=== PATIENT | female | born 2000 | race African-American/Black ===

== ENCOUNTER 2024-11-27 07:07 | Observation (INO) ==
--- NOTE | 2024-11-27 07:25 | Emergency Department Note ---
Impression & Plan PID (acute pelvic inflammatory disease), Nausea & vomiting ED Provider Note CHIEF COMPLAINT: Abdominal pain, nausea vomiting HISTORY OF PRESENTING ILLNESS: The patient is a pleasant 24-year-old female who arrives to the emergency department for evaluation of abdominal pain, nausea, vomiting, and vaginal discharge. Patient reports symptoms have been for 3 days. Patient also reports brown odorous vaginal discharge. Patient reports she had a malpositioned IUD replaced approximately 3 weeks ago. Patient reports being on her menstrual cycle at that time. She states since then she has had vaginal discharge. She reports no dysuria, no pelvic pain, no fever. No new sexual partner since IUD placement. REVIEW OF SYSTEMS: See HPI for pertinent positives and pertinent negatives. ALLERGIES: See below MEDICATIONS: See below PAST MEDICAL HISTORY: See below PHYSICAL EXAM: VITALS: Vitals are noted on the nurse's note and reviewed by myself. Vital signs stable. GENERAL: 24-year-old female, in no acute distress, nondiaphoretic, well- developed well-nourished. SKIN: The skin was without rashes, erythema, edema, or bruising. HEAD: Normocephalic atraumatic. HEART: Regular rate and rhythm without murmurs gallops or rubs. LUNGS: Clear to auscultation bilaterally without wheezes, rales or rhonchi. No retractions or accessory muscle use. ABDOMEN: Positive bowel sounds x 4. Soft, TTP diffuse lower abdomen. No rebound tenderness or guarding. : Severe pain on examination, with insertion of speculum. No abnormal findings on external examination. Erythema, with brown, discharge present in the vaginal vault. Cervical motion tenderness present. NEURO: Patient was alert and oriented to person place and time. No focal neurological deficits. DIFFERENTIAL DIAGNOSIS: Appendicitis, ovarian cyst, ovarian torsion, ectopic , TOA, PID, infections, diverticulitis, UTI, obstruction, mesenteric ischemia, aortic pathology, inflammatory bowel disease, renal colic, PUD, pancreatitis, biliary pathology, hernia, volvulus, constipation, as well as other pathologies. ED COURSE AND MEDICAL DECISION MAKING: MEDICATIONS GIVEN: 2 g IV Rocephin, 100 mg IV doxycycline, 500 mg IV metronidazole, 1 L NSS bolus, 4 mg IV Zofran. INTERPRETATION OF LABS: I interpreted the labs with full lab results as below in the lab section of this note. Pertinent lab results discussed in the MDM section below. INTERPRETATION OF IMAGING: Imaging studies were interpreted by myself and read by radiology as per the imaging section of this note. MDM SUMMARY: The patient is a pleasant 24-year-old female who arrives to the emergency department for evaluation of the above-stated complaint. Saline lock was established, CBC, CMP, urinalysis, lipase, were obtained. CBC shows no leukocytosis, with a stable hemoglobin and hematocrit. CMP is unremarkable. Urinalysis 3+ blood, trace leukocyte esterase, 11-20 WBCs, 4+ bacteria. Pelvic examination performed with crankshaft straightener at bedside. Concern for pelvic inflammatory disease based on examination findings. Vaginal cultures were obtained. The patient was provided 2 g of IV Rocephin, 100 mg IV doxycycline, and 500 mg IV metronidazole. I spoke with Dr. De Los Santos from [facility], who stated no further orders from her standpoint would be required and the patient can be treated with medical admission. Case management facilitated contact with the [facility] hospitalist group. Dr. Vázquez agreed to evaluate the patient, for admission. Due to the patient's nausea and vomiting, she will be unable to take oral antibiotics. Dr. Vázquez agreed to admit the patient under his care. Please refer to his documentation for further patient workup and treatment. DIAGNOSIS: Pelvic inflammatory disease, nausea/vomiting The chart was completed utilizing [employer] Speech voice recognition software. Grammatical errors, random word insertions, pronoun errors, and incomplete sentences are an occasional consequence of this system due to software limitations, ambient noise, and hardware issues. Any formal questions or concerns about the content, text, or information contained within the body of this dictation should be directly addressed to the provider for clarification. 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 Beliefs That Will Affect Care: None Current Living Situation: Other Current Living Situation Comment: [facility] Other Information That Helps Us Care for You: No Feels Safe at Home: Yes Safety Concerns: Feels Safe At This Time Assistive Devices: None Allergies Allergies Allergy/AdvReac Type Severity Reaction Status Date / Time peanut Allergy Gastrointestinal Verified 11/27/24 09:24 Upset Penicillins Allergy Hives Verified 11/27/24 09:24 Home Meds Home Medications Medication Instructions Recorded Confirmed lurasidone 40 mg tablet 40 mg PO QDD 09/09/24 11/27/24 cetirizine 5 mg-pseudoephedrine ER 1 tab PO Q12H PRN 11/27/24 11/27/24 120 mg tablet,extended Allergy/Congestion release,12hr (Zyrtec-D) fluticasone propionate 50 1 spray intranasal DAILY 11/27/24 11/27/24 mcg/actuation nasal spray,suspension ondansetron 4 mg disintegrating 4 mg PO Q8H PRN Nausea And Vomiting 11/27/24 11/27/24 tablet Results & Data (ED) Vital Signs Vital Signs - 24 hr 11/27/24 07:12 11/27/24 10:17 11/27/24 12:59 Temperature 36.4 C L Temperature Source Temporal Artery Scan Pulse Rate 79 Pulse Rate [Right Finger] 82 67 Pulse Rhythm [Right Finger] Regular Respiratory Rate 18 17 17 Respiratory Depth Normal Blood Pressure 135/102 H Blood Pressure [Left Arm] 144/85 H 136/89 Blood Pressure Mean 113 Blood Pressure Mean [Left Arm] 104 104 Blood Pressure Position [Left Arm] Semi-fowlers Pulse Oximetry 97 100 100 Oxygen Delivery Method Room Air Room Air Sepsis New/Unexplained Change in Mental Status No Sepsis Action Taken by Nursing No Action Required Home Medications Current Medication List: was personally reviewed by me Laboratory Data Attestation: I reviewed the patient's lab results. 11/27/24 07:50 11/27/24 07:50 Lab Results 11/27/24 11/27/24 11/27/24 Range/Units 07:50 08:25 09:35 WBC 7.38 (4.8-10.8) K/ul RBC 4.61 (4.20-5.40) M/uL Hgb 13.1 (12.0-16.0) g/dl Hct 39.5 (37.0-47.0) % MCV 85.7 (80.0-100.0) fL MCH 28.4 (25.0-34.0) pg MCHC 33.2 (32.0-36.0) g/dL RDW Std Deviation 45.4 (36.4-46.3) fL RDW Coeff of Jose 14.6 H (11.5-14.5) % Plt Count 359 (130-400) K/uL MPV 9.5 (9.4-12.4) fL Immature Gran % (Auto) 0.3 % Neut % (Auto) 54.2 % Lymph % (Auto) 36.9 % [place] % (Auto) 7.5 % Eos % (Auto) 0.3 % Baso % (Auto) 0.8 % Neut # (Auto) 4.01 (1.40-6.50) K/uL Lymph # (Auto) 2.72 (1.20-3.40) K/uL [place] # (Auto) 0.55 (0.11-0.59) K/uL Eos # (Auto) 0.02 (0.00-0.50) K/uL Baso # (Auto) 0.06 (0.00-0.20) K/uL Immature Gran # (Auto) 0.02 (0.01-0.20) K/uL Sodium 139 (136-145) mmol/L Potassium 3.9 (3.5-5.1) mmol/L Chloride 106 (98-107) mmol/L Carbon Dioxide 27 (21-32) mmol/L Anion Gap 6 (3-11) BUN 8 (6-23) mg/dl Creatinine 0.65 (0.6-1.2) mg/dl Est Cr Clr Drug Dosing 194.2 ml/min eGFR 127.59 BUN/Creatinine Ratio 12.3 (10-20) Glucose 95 (70-99(Fasting)) mg/dl Calcium 9.5 (8.6-10.3) mg/dl Total Bilirubin 0.7 (0.2-1.0) mg/dl AST 11 L (13-39) U/L ALT 4 L (7-52) U/L Alkaline Phosphatase 59 (34-104) U/L Total Protein 7.4 (6.0-8.3) gm/dl Albumin 4.3 (3.4-5.0) gm/dl Globulin 3.1 (2.5-4.0) gm/dl Albumin/Globulin Ratio 1.4 (0.9-2) Lipase 10 L (11-82) U/L Urine Color Dark Yellow Urine Appearance Cloudy A (Clear) Urine pH 6.0 (4.5-7.5) Ur Specific [place] 1.034 H (1.000-1.030) Urine Protein Trace H (Negative) Urine Glucose (UA) Negative (Negative) Urine Ketones 1+ H (Negative) Urine Blood 3+ H (Negative) Urine Nitrite Negative (Negative) Urine Bilirubin Negative (Negative) Urine Urobilinogen Negative (Negative) Ur Leukocyte Esterase Trace H (Negative) Urine WBC (Auto) 11-20 H (0-5) /hpf Urine RBC (Auto) 11-20 H (0-2) /hpf U Hyaline Cast (Auto) 3-5 H (0-2) /lpf U Epithel Cells (Auto) 0-2 (0-2) /hpf Urine Bacteria (Auto) 4+ H (None Seen) Urine Mucus Present A (None Prsent) Urine Test Negative (Negative) C.trachomatis RNA Not Detected (NotDetected) N.gonorrhoeae RNA Not Detected (NotDetected) T.vaginalis (Amp Det) Not Detected (NotDetected) Administered Medications Lactated Ringer's (Lr) 1,000 mls @ 80 mls/hr IV .[id number] [facility] Stop: 11/28/24 01:44 Last Admin: 11/27/24 15:50 Dose: 80 mls/hr Documented By: JHON Ondansetron HCl (Ondansetron Inj 2 Mg/Ml 2 Ml Vial) 4 mg IV Q6H PRN PRN Reason: Nausea And Vomiting Stop: 12/27/24 15:31 Last Admin: 11/27/24 15:53 Dose: 4 mg Documented By: JILLIANO Discontinued Medications Sodium Chloride (Nss) 1,000 mls @ 999 mls/hr IV .[id number] ONE Stop: 11/27/24 08:33 Last Infusion: 11/27/24 09:19 Dose: Infused Documented By: Admin: 11/27/24 08:15 Dose: 999 mls/hr Documented By: GASTON Acetaminophen (Ofirmev) 1,000 mg in 100 mls @ 400 mls/hr IV NOW STA Stop: 11/27/24 09:51 Last Infusion: 11/27/24 10:26 Dose: Infused Documented By: Admin: 11/27/24 09:42 Dose: 400 mls/hr Documented By: GASTON Ceftriaxone Sodium (Rocephin) 2,000 mg in 50 mls @ 100 mls/hr IV NOW STA Stop: 11/27/24 10:09 Last Infusion: 11/27/24 12:52 Dose: Infused Documented By: Admin: 11/27/24 10:59 Dose: 100 mls/hr Documented By: GASTON Doxycycline Hyclate 100 mg/ (Dextrose) 100 mls @ 50 mls/hr IV NOW STA Stop: 11/27/24 13:46 Last Infusion: 11/27/24 16:17 Dose: Infused Documented By: Admin: 11/27/24 12:52 Dose: 50 mls/hr Documented By: GASTON Metronidazole (Flagyl) 500 mg in 100 mls @ 100 mls/hr IV NOW STA; Protocol Stop: 11/27/24 12:46 Last Infusion: 11/27/24 14:54 Dose: Infused Documented By: Admin: 11/27/24 12:26 Dose: 100 mls/hr Documented By: GASTON Ondansetron HCl (Ondansetron Inj 2 Mg/Ml 2 Ml Vial) 4 mg IV NOW STA Stop: 11/27/24 07:34 Last Admin: 11/27/24 08:14 Dose: 4 mg Documented By: GASTON Imaging Data Attestation: I personally reviewed and interpreted this imaging study as follows: Radiologist's Impression: Pelvis Ultrasound 11/27/24 09:37 US pelvic complete HISTORY: 24 years-old Female pain, PID? Acute generalized pelvic pain COMPARISON: CT abdomen and pelvis and pelvic ultrasound studies 09/09/2024 TECHNIQUE: Multiple real-time sonographic images of the deep pelvic structures were obtained transabdominally assessing grayscale appearance, color and spectral flow FINDINGS: Anteflexed uterus measures 8.1 x 4.4 x 3.8 cm and is unremarkable. Endometrium is 4 mm in thickness. No myometrial mass lesion. Fundal positioning of the intrauterine device. Right ovary measures 2.3 x 2.2 x 1.4 cm's. Left ovary measures 3.1 x 2.7 x 2.1 cm. Arterial inflow venous outflow documented bilaterally. No adnexal mass lesions. Patient declined the transvaginal component of the study. IMPRESSION: Unremarkable pelvic ultrasound. ACT 112: Negative or not required by law. The above report was generated using voice recognition software. It may contain grammatical, syntax or spelling errors. Electronically signed by: Spike Minor M.D. 11/27/2024 11:09 AM Abdomen/Pelvis CT 11/27/24 12:55 CT OF THE ABDOMEN AND PELVIS WITHOUT CONTRAST CLINICAL HISTORY: Abdominal pain. Suspect pelvic inflammatory disease. COMPARISON STUDY: CT of the abdomen and pelvis September 09, 2024. Pelvic ultrasound performed earlier today. TECHNIQUE: Axial images of the abdomen and pelvis were obtained without IV contrast. Images were reviewed in the axial, sagittal, and coronal planes. Automated exposure control was utilized for the study. A dose lowering technique was utilized adhering to the principles of ALARA. FINDINGS: Visualized lung bases are unremarkable. No pneumatosis, free air or portal venous gas is present. There are no renal, ureteral or bladder calculi. Pelvic calcifications represent phleboliths. Evaluation of the remainder of the abdomen and pelvis is suboptimal on this unenhanced examination. Liver, spleen, adrenal glands and pancreas are unremarkable. There is no biliary or pancreatic ductal dilatation. Postoperative findings within the stomach are again noted. There is no evidence for a bowel obstruction. The appendix is normal. Intrauterine device is in place. Ovaries are not enlarged. No pelvic fluid collection is identified although sensitivity is diminished on unenhanced exam. IMPRESSION: 1. No acute process within the abdomen or pelvis on unenhanced exam. 2. No urinary calculi or hydronephrosis. 3. No bowel obstruction. Normal appendix. 4. Intrauterine device in place. ACT 112: Negative or not required by law. Electronically signed by: Remi Baker M.D. 11/27/2024 2:35 PM Discharge Plan Visit Data Chief Complaint: GI Assessment Stated Complaint: N/V, STOMACH PAIN ED Provider: Clem Flores ED Midlevel Provider: Chantelle Burkett Discharge Problem: PID (acute pelvic inflammatory disease), Nausea & vomiting Patient Disposition: Admitted As Inpatient Discharge Instructions Interventions: ED Discharge Assessment Last Done: 11/27/24 15:03
[2024-11-27 08:13] LABS: Basophils # (auto) 0.06 K/uL (0.00-0.20); Basophils % (auto) 0.8 %; Eosinophils # (auto) 0.02 K/uL (0.00-0.50); Eosinophils % (auto) 0.3 %; Hematocrit (blood only) 39.5 % (37.0-47.0); Hemoglobin 13.1 g/dl (12.0-16.0); Immature Granulocytes # (auto) 0.02 K/uL (0.01-0.20); Immature Granulocytes % (auto) 0.3 %; Lymphocytes # (auto) 2.72 K/uL (1.20-3.40); Lymphocytes % (auto) 36.9 %; Mean Corpuscular Hemoglobin 28.4 pg (25.0-34.0); Mean Corpuscular Hgb Conc 33.2 g/dL (32.0-36.0); Mean Corpuscular Volume 85.7 fL (80.0-100.0); Mean Platelet Volume 9.5 fL (9.4-12.4); Monocytes # (auto) 0.55 K/uL (0.11-0.59); Monocytes % (auto) 7.5 %; Neutrophils # (auto) 4.01 K/uL (1.40-6.50); Neutrophils % (auto) 54.2 %; Platelet Count 359 K/uL (130-400); RDW Coefficient of Variation 14.6 % (11.5-14.5); RDW Standard Deviation 45.4 fL (36.4-46.3); Red Blood Count 4.61 M/uL (4.20-5.40); White Blood Count 7.38 K/ul (4.8-10.8)
[2024-11-27] MEDS: ONDANSETRON INJ 2 MG/ML 2 ML VIAL IV STA (08:14)
[2024-11-27] MEDS: SODIUM CHLORIDE 0.9% 1,000 ML IV ONE (08:15)
[2024-11-27 08:36] LABS: Pregnancy Test, Urine Negative (Negative)
[2024-11-27 08:41] LABS: Albumin Globulin Ratio 1.4 (0.9-2); Albumin Level 4.3 gm/dl (3.4-5.0); BUN Creatinine Ratio 12.3 (10-20); Bilirubin,Total 0.7 mg/dl (0.2-1.0); Calcium 9.5 mg/dl (8.6-10.3); Creatinine Clr Calc Pharmacy 194.2 ml/min; Globulin 3.1 gm/dl (2.5-4.0); Potassium 3.9 mmol/L (3.5-5.1); Total Protein 7.4 gm/dl (6.0-8.3)
[2024-11-27 08:56] LABS: Appearance Urine Cloudy (Clear); Bacteria Urine Automated 4+ (None Seen); Bilirubin Urine Negative (Negative); Blood Urine 3+ (Negative); Color Urine Dark Yellow; Epithelial Cell Urine Auto 0-2 /hpf (0-2); Glucose Urine UA Negative (Negative); Ketones Urine 1+ (Negative); Leukocyte Esterase Urine Trace (Negative); Nitrite Urine Negative (Negative); Protein Urine Trace (Negative); Specific Gravity Urine 1.034 (1.000-1.030); Urobilinogen Urine Negative (Negative)
[2024-11-27 09:06] LABS: Mucus Urine Present (None Prsent)
[2024-11-27] MEDS: ACETAMINOPHEN 1,000 MG/100 ML VIAL IV STA (09:42)
[2024-11-27 10:19] VITALS: O2SAT 100
[2024-11-27] MEDS: cefTRIAXone SODIUM 2,000 MG/50 ML BAG IV STA (10:59)
--- NOTE | 2024-11-27 11:11 | Ultrasound Report ---
US pelvic complete HISTORY: 24 years-old Female pain, PID? Acute generalized pelvic pain COMPARISON: CT abdomen and pelvis and pelvic ultrasound studies 09/09/2024 TECHNIQUE: Multiple real-time sonographic images of the deep pelvic structures were obtained transabd ominally assessing grayscale appearance, color and spectral flow FINDINGS: Anteflexed uterus measures 8.1 x 4.4 x 3.8 cm and is unremarkable. Endometrium is 4 mm in thickness. No myometrial mass lesion. Fundal positioning of the intrauterine device. Right ovary measures 2.3 x 2.2 x 1.4 cm's. Left ovary measures 3.1 x 2.7 x 2.1 cm. Arterial inflow ve nous outflow documented bilaterally. No adnexal mass lesions. Patient declined the transvaginal component of the study. IMPRESSION: Unremarkable pelvic ultrasound. ACT 112: Negative or not required by law. The above report was generated using voice recognition software. It may contain grammatical, syntax o r spelling errors. Electronically signed by: Spike Minor M.D. 11/27/2024 11:09 AM
[2024-11-27] MEDS: metroNIDAZOLE 500 MG/100 ML BAG IV STA (12:26)
--- NOTE | 2024-11-27 12:35 | History & Physical Report ---
Date of Service November 27, 2024 Assessment & Plan (1) PID (acute pelvic inflammatory disease): (2) Dehydration: Plan Patient is a 24-year-old female with a past medical history of gastric bypass and IUD placement. She presented to the ED due to nausea, vomiting, abdominal pain, and vaginal discharge. She thought to have pelvic inflammatory disease, pelvic swab pending. She recently had her IUD replaced in [facility]. ER provider completed pelvic exam and stated there was significant amount of vaginal discharge. Pelvic ultrasound showed no significant abnormalities, IUD in place. UA appears infectious for UTI. She is being admitted for suspected PID requiring IV antibiotics, AP CT ordered. Cannabis hyperemesis syndrome remains on differential as patient is a chronic marijuana user, however low suspicion given patient uses cannabis after GI flareups began. #PID/UTI/nausea/vomiting Suspect PID secondary to recent IUD replacement denies being sexually active No leukocytosis, VSS, afebrile UA does appear infectious with 3+ blood, 1+ ketone, trace leukocyte esterase, 11-20 WBC, 11-20 RBC, 3-5 hyaline cast, 4+ bacteria Follow urine cultures Vaginal swab ordered and pending; BV swab ordered Pelvic ultrasound essentially negative, IUD in place AP CT ordered Continue IV Rocephin, doxycycline, and Flagyl; can transition to p.o. Doxy 100 Mg twice daily and Flagyl 500 Mg twice daily x 14 days after symptoms improve - does get hives with penicillins, no reaction to Rocephin in ED, monitor for any reaction Zofran and IV Tylenol as needed stool cultures ordered #dehydration 2/2 vomiting/diarrhea Urine specific gravity 1.034 renal function stable 1L NSS bolus in ED Continue fluid resuscitation with LR at 80 mL/hour x 1L Promote oral hydration VTE ppx: SCDs, obs and able to ambulate Diet: clears, advance as tolerated with nausea and vomiting Dispo: MedSur Admission and Anticipated Discharge Date Admission Date: 11/27/24 History of Present Illness Chief Complaint: gi assessment Primary Care Provider: Tariq Moreno MD Patient is a 24-year-old female with a past medical history of gastric bypass, schizophrenia, and IUD placement. She presented to the ED due to nausea, vomiting, abdominal pain, and vaginal discharge. She thought to have pelvic inflammatory disease, pelvic swab pending. She recently had her IUD replaced in [facility]. ER provider completed pelvic exam and stated there was significant amount of vaginal discharge. Pelvic ultrasound showed no significant abnormalities, IUD in place. UA appears infectious for UTI. She is being admitted for suspected PID requiring IV antibiotics, AP CT ordered. Cannabis hyperemesis syndrome remains on differential as patient is a chronic marijuana user. Patient seen at bedside.She stated that she has frequent flareups of nausea, vomiting, and diarrhea along with abdominal pain that she comes into the ER for. She has had no specific diagnosis for this and follows with a new GI doctor and PCP in [facility], she recently had a colonoscopy 1 to 2 years ago which showed polyps and she was also told she has an esophageal hernia. She stated she began with her usual nausea, vomiting, and diarrhea Monday night; she has had roughly 20 episodes of vomiting and 4 episodes of diarrhea since. She denies any hematic emesis, bright red blood in stool, melena. She also has diffuse abdominal pain. Patient stated what is different this time as she has had brown vaginal discharge for 1 to 2 weeks that she thought was spotting, however she began her menses this morning. Patient did have an IUD replaced November 04 in [facility]. Patient has had decreased oral intake for the past few days due to the vomiting and diarrhea. She stated she has associated dizziness, lightheadedness, and shortness of breath during vomiting episodes however is relatively asymptomatic right now. Nausea is improved with Zofran. Her abdominal pain is greatly improved with IV Tylenol. She denies being sexually active. She denies any dysuria, hematuria, or difficulty urinating. She does not use nicotine products or drink alcohol, however she does use medical marijuana with the flareups. Low concern for cannabis hyperemesis syndrome given the symptoms began before she uses cannabis. She does not take any daily medications. She wishes to be full code. Allergies Allergy/AdvReac Type Severity Reaction Status Date / Time peanut Allergy Gastrointestinal Verified 11/27/24 09:24 Upset Penicillins Allergy Hives Verified 11/27/24 09:24 Home Medications Medication Instructions Recorded Confirmed Type lurasidone 40 mg tablet 40 mg PO QDD 09/09/24 11/27/24 History cetirizine 5 mg-pseudoephedrine ER 1 tab PO Q12H PRN 11/27/24 11/27/24 History 120 mg tablet,extended Allergy/Congestion release,12hr (Zyrtec-D) fluticasone propionate 50 1 spray intranasal DAILY 11/27/24 11/27/24 History mcg/actuation nasal spray,suspension ondansetron 4 mg disintegrating 4 mg PO Q8H PRN Nausea And Vomiting 11/27/24 11/27/24 History tablet Past Med/Surg History Problem List (Updated 11/27/24 @ 13:07 by Gwen Mayorga PA-C) Dehydration PID (acute pelvic inflammatory disease) Medical History Depression Anxiety Surgical History History of gastric bypass Social History Smoking Status: Never smoker Preferred Language: Sinhala Feels Safe at Home: Yes Review of Systems Review of Systems: See HPI Physical Exam Physical Exam: The patient is awake, alert and oriented 3, well developed and well nourished, normocephalic and atraumatic, in no acute distress. Non-toxic appearing. HEENT- EOMI, mucous membranes dry. Hearing grossly intact. Heart-normal S1 and S2. No murmurs, rubs or gallops. Lungs-clear bilaterally, no respiratory distress, no accessory muscle use. Abdomen-normal bowel sounds and soft. No ascites noted. Diffuse tenderness with deep palpation. Extremities- no clubbing, cyanosis, or edema. Rheumatologic-normal range of motion. Psychiatric-normal affect. Results & Data Results & Data Vital Signs (Past 12 Hours) Vital Signs Temp Pulse Pulse Resp BP BP Pulse Ox 11/27/24 10:17 82 17 144/85 H 100 11/27/24 07:12 36.4 C L 79 18 135/102 H 97 O2 Del Method 11/27/24 10:17 11/27/24 07:12 Room Air Laboratory Results reviewed CBC, CMP, UA, lipase Diagnostic Findings reviewed pelvic ultrasound Medications Administered EDRocephin 2G IV, Zofran 4 Mg IV, NSS 1 L bolus, acetaminophen 1G IV, Flagyl 500 Mg IV, doxycycline 100 Mg IV Code Status & VTE Plan Code Status full VTE Prophylaxis Plan VTE Prophylaxis will be ordered: Yes Supervising Physician Co-Signing Physician Notes Patient was seen and examined independently I discussed the case with Gwen JUSTICE I reviewed pertinent past medical social family history and also the plan of care and agree with the plan of care. 24-year-old female presents to the ER for tibial complaints of nausea vomiting abdominal pain. These have been intermittent and recurrent for some time and she is been started on [place] medical marijuana for this. She typically states that these are improved with Tylenol Zofran and IV fluid. She on her last intake to [facility] with a CAT scan was told that her IUD was misplaced she went to her [employer]RAFT[employer]AILER provider in [facility] and had this replaced approximately on November 04. Patient has had some vaginal discharge since that time but no real significant pain. She is not sexually active. Upon presentation with vaginal discharge there was concern for vaginitis or infection cultures were obtained and patient was started on ceftriaxone doxycycline and Flagyl. Patient denies other other changes in her health he does have some discomfort in her abdomen but she states this is about typical for her. Physical exam she is pleasant she is conversant she is without significant distress her card exam is regular lungs were diminished due to her body size her abdomen was normal with normal bowel sounds she was mildly uncomfortable in the lower abdomen to exam. Assessments chronic recurrent nausea and vomiting usually improved with supportive care concern for vaginal infection with cultures obtained continuing antibiotics at this time with reevaluation. Any exceptions will be noted below PG Care Time/CCT Total # of Minutes Spent Total Time Spent with Patient: Total time spent is greater than 50% in coordination of care (as documented) at patient's floor/unit and/or counseling patient: Coding Level of Care Code 53780 INT INP/OBS CARE MIN Diagnoses PID (acute pelvic inflammatory disease) N73.0 Dehydration E86.0
[2024-11-27] MEDS: DOXYCYCLINE HYCLATE 100 MG in DEXTROSE 5% MINI-B 100 ML IV STA (12:52)
[2024-11-27 13:30] LABS: Chlam trach RNA(Genit,Ureth,Ur Not Detected (NotDetected); GC(Neis gon)RNA(Genit,Ureth,Ur Not Detected (NotDetected)
[2024-11-27 14:30] LABS: Trichomonas vag by NAA Not Detected (NotDetected)
--- NOTE | 2024-11-27 14:37 | CT Scan Report ---
CT OF THE ABDOMEN AND PELVIS WITHOUT CONTRAST CLINICAL HISTORY: Abdominal pain. Suspect pelvic inflammatory disease. COMPARISON STUDY: CT of the abdomen and pelvis September 09, 2024. Pelvic ultrasound performed earlier today. TECHNIQUE: Axial images of the abdomen and pelvis were obtained without IV contrast. Images were revi ewed in the axial, sagittal, and coronal planes. Automated exposure control was utilized for the pedro dy. A dose lowering technique was utilized adhering to the principles of ALARA. FINDINGS: Visualized lung bases are unremarkable. No pneumatosis, free air or portal venous gas is pr esent. There are no renal, ureteral or bladder calculi. Pelvic calcifications represent phleboliths. Evaluation of the remainder of the abdomen and pelvis is suboptimal on this unenhanced examination. L iver, spleen, adrenal glands and pancreas are unremarkable. There is no biliary or pancreatic ductal dilatation. Postoperative findings within the stomach are again noted. There is no evidence for a bow el obstruction. The appendix is normal. Intrauterine device is in place. Ovaries are not enlarged. No pelvic fluid collection is identified although sensitivity is diminished on unenhanced exam. IMPRESSION: 1. No acute process within the abdomen or pelvis on unenhanced exam. 2. No urinary calculi or hydronephrosis. 3. No bowel obstruction. Normal appendix. 4. Intrauterine device in place. ACT 112: Negative or not required by law. Electronically signed by: Remi Baker M.D. 11/27/2024 2:35 PM
[2024-11-27] MEDS: LACTATED RINGER'S 1,000 ML IV SCH (15:50)
[2024-11-27] MEDS: ONDANSETRON INJ 2 MG/ML 2 ML VIAL IV PRN (15:53)
[2024-11-27] MEDS: FAMOTIDINE 20MG IV PUSH 20 MG/5 ML SYR IV SCH (17:59)
[2024-11-27] MEDS: ACETAMINOPHEN 1,000 MG/100 ML VIAL IV PRN (20:10)
[2024-11-27] MEDS: PROCHLORPERAZINE 5 MG in SYRINGE 4 ML IV ONE (21:31)
[2024-11-27] MEDS: KETOROLAC TROMETHAMINE 15 MG/ML VIAL IV ONE (21:31)
[2024-11-27] MEDS: DOXYCYCLINE HYCLATE 100 MG in DEXTROSE 5% MINI-B 100 ML IV SCH (21:33)
[2024-11-27] MEDS: hydrOXYzine HCl 25 MG TAB PO STA (22:51)
[2024-11-27] MEDS: metroNIDAZOLE 500 MG/100 ML BAG IV SCH (23:39)
[2024-11-28] MEDS: MoRPHine SULFATE 2 MG/ML CARP IV STA (06:20)
[2024-11-28 06:42] LABS: Basophils # (auto) 0.06 K/uL (0.00-0.20); Basophils % (auto) 0.8 %; Eosinophils # (auto) 0.03 K/uL (0.00-0.50); Eosinophils % (auto) 0.4 %; Hemoglobin 12.2 g/dl (12.0-16.0); Immature Granulocytes # (auto) 0.01 K/uL (0.01-0.20); Immature Granulocytes % (auto) 0.1 %; Lymphocytes # (auto) 3.33 K/uL (1.20-3.40); Lymphocytes % (auto) 43.2 %; Mean Corpuscular Hemoglobin 28.5 pg (25.0-34.0); Mean Corpuscular Volume 86.4 fL (80.0-100.0); Mean Platelet Volume 9.5 fL (9.4-12.4); Monocytes # (auto) 0.63 K/uL (0.11-0.59); Monocytes % (auto) 8.2 %; Neutrophils # (auto) 3.64 K/uL (1.40-6.50); Neutrophils % (auto) 47.3 %; Platelet Count 315 K/uL (130-400); RDW Coefficient of Variation 14.4 % (11.5-14.5); RDW Standard Deviation 45.5 fL (36.4-46.3); Red Blood Count 4.28 M/uL (4.20-5.40)
[2024-11-28 07:11] LABS: BUN Creatinine Ratio 9.5 (10-20); Calcium 9.1 mg/dl (8.6-10.3); Creatinine Clr Calc Pharmacy 200.3 ml/min
[2024-11-28 07:40] VITALS: BP 133/87; PULSE 62; RESP 16; TEMP 98.2
[2024-11-28] MEDS ORDERED: cefTRIAXone SODIUM 2,000 MG/50 ML BAG IV SCH (12:00)
--- NOTE | 2024-11-28 12:57 | Discharge Summary ---
Discharge Summary Date of Service November 28, 2024 Principal Dx & Hospital Course #1 = Principal Diagnosis (1) PID (acute pelvic inflammatory disease): (2) Dehydration: Plan Patient is a 24-year-old female with a past medical history of gastric bypass and IUD placement. She presented to the ED due to nausea, vomiting, abdominal pain, and vaginal discharge. She thought to have pelvic inflammatory disease, pelvic swab pending. She recently had her IUD replaced in [facility]. ER provider completed pelvic exam and stated there was significant amount of vaginal discharge. Pelvic ultrasound showed no significant abnormalities, IUD in place. UA appears infectious for UTI. She is being admitted for suspected PID requiring IV antibiotics, AP CT ordered. Cannabis hyperemesis syndrome remains on differential as patient is a chronic marijuana user, however low suspicion given patient uses cannabis after GI flareups began. #PID/UTI/nausea/vomiting Suspect PID secondary to recent IUD replacement denies being sexually active polymicrobial urine cultures, will just treat for pid with 2 additional weeks of doxycycline and flagyl Vaginal swab shows gr + bacilli Pelvic ultrasound negative, IUD in place AP CT negative # Gi distress resolved Patient was most interested in having a work excuse 1-2 extended through Monday. We did not give her a work excuse through Monday only for the day she was in the hospital. Admission HPI Per Admitting Provider Patient is a 24-year-old female with a past medical history of gastric bypass, schizophrenia, and IUD placement. She presented to the ED due to nausea, vomiting, abdominal pain, and vaginal discharge. She thought to have pelvic inflammatory disease, pelvic swab pending. She recently had her IUD replaced in [facility]. ER provider completed pelvic exam and stated there was significant amount of vaginal discharge. Pelvic ultrasound showed no significant abnormalities, IUD in place. UA appears infectious for UTI. She is being admitted for suspected PID requiring IV antibiotics, AP CT ordered. Cannabis hyperemesis syndrome remains on differential as patient is a chronic marijuana user. Patient seen at bedside.She stated that she has frequent flareups of nausea, vomiting, and diarrhea along with abdominal pain that she comes into the ER for. She has had no specific diagnosis for this and follows with a new GI doctor and PCP in [facility], she recently had a colonoscopy 1 to 2 years ago which showed polyps and she was also told she has an esophageal hernia. She stated she began with her usual nausea, vomiting, and diarrhea Monday night; she has had roughly 20 episodes of vomiting and 4 episodes of diarrhea since. She denies any hematic emesis, bright red blood in stool, melena. She also has diffuse abdominal pain. Patient stated what is different this time as she has had brown vaginal discharge for 1 to 2 weeks that she thought was spotting, however she began her menses this morning. Patient did have an IUD replaced November 04 in [facility]. Patient has had decreased oral intake for the past few days due to the vomiting and diarrhea. She stated she has associated dizziness, lightheadedness, and shortness of breath during vomiting episodes however is relatively asymptomatic right now. Nausea is improved with Zofran. Her abdominal pain is greatly improved with IV Tylenol. She denies being sexually active. She denies any dysuria, hematuria, or difficulty urinating. She does n ot use nicotine products or drink alcohol, however she does use medical marijuana with the flareups. Low concern for cannabis hyperemesis syndrome given the symptoms began before she uses cannabis. She does not take any daily medications. She wishes to be full code. Discharge Exam Awake alert and appropriate no abdominal pain at this time eating breakfast. Discharge Plan Discharge Items Patient Disposition: Home - Self-Care Reason For Visit: PID, UTI, VOMITING, DIARRHEA Discharge Diagnosis: vaginal discharge abdominal pain Activity: Resume your previous activity Non-emergency contact: Primary Care Provider Call non-emergency contact if: your symptoms worsen Follow-up/Referrals: [facility] [Non-Staff] - (PLEASE FOLLOW UP WITH [facility] IN 7-10 DAYS) Tariq Moreno MD [Primary Care Provider] - Diet: Regular Addtl Attending Provider Instructions: please follow up with your primary care provider/[facility] complete all of your antibiotics Pending Studies at Discharge: No Stand-Alone Forms: My INNOBI, Work/School Release, Smoking Ce ssation Medications and DC Order Prescriptions: New doxycycline hyclate 100 mg capsule 100 mg PO BID 14 Days Qty: 28 0RF metronidazole 500 mg tablet 500 mg PO BID 14 Days Qty: 28 0RF ondansetron HCl 4 mg tablet 4 mg PO Q8H Qty: 14 0RF Continued lurasidone 40 mg tablet 40 mg PO QDD ondansetron 4 mg tablet,disintegrating 4 mg PO Q8H PRN (Reason: Nausea And Vomiting) cetirizine-pseudoephedrine [Zyrtec-D] 5-120 mg Tablet Extended Release 12 Hr 1 tab PO Q12H PRN (Reason: Allergy/Congestion) fluticasone propionate 50 mcg/actuation [place],Suspension 1 spray INTRANASAL DAILY Rx Instructions: administer into each nostril Discharge Orders: Discharge Order (Routine); Ordered 11/28/24 Ordered By: Yuniel Vázquez Admission Data Admit Date/Time: 11/27/24 13:06 Attending Provider: Yuniel Vázquez Admit Provider: Yuniel Vázquez Primary Care Provider: Tariq Moreno Other Providers: Yuniel Vázquez Other Interventions: Discharge Summary Assessment (RN) Last Done: 11/28/24 10:44 Hospital Stay Data Consultations 11/27/24 12:09 ED Decision to Admit Stat Diagnostic Imagining Performed 11/27/24 09:37 US pelvic complete Stat 11/27/24 12:55 CT Abd and Pelvis [CT abd pelvis wo con] Urgent Pending Results Patient Have Any Pending Studies at Discharge: No Discharge Instructions Given to Patient (Per Discharging Provider) please follow up with your primary care provider/[facility] complete all of your antibiotics Total Time Total Time Spent Total Time Spent (In Minutes): It required greater than 30 minutes to prepare this patient for discharge. Coding Level of Care Code 28202 INP/OBS DISCH >30 MIN Diagnoses PID (acute pelvic inflammatory disease) N73.0 Dehydration E86.0
== END 2024-11-28 11:34 | disposition home or self-care (01) ==
LOC: ED 07:07 → 3E 07:07 → SUATTDRO 13:06 → 3E 15:03